=== PATIENT | male | born 1950 | race Caucasian/White ===

== ENCOUNTER 2016-09-18 12:15 | Day surgery (SDC) | payer MEDICAID, OTHER ==
[2016-09-18 12:56] VITALS: PULSE 68
--- NOTE | 2016-09-18 12:56 | PDGENHP ---
History & Physical Chief Complaint: screening History of Present Illness: 65 year old male presents for screening colonoscopy. Pertinent Past, Social, Family History: SoHx: + alc/cigs. PMHx: Bipolar. FaMHx : no CRC Relevant Physical Exam: HEENT: anicteric. CV: RRR +s1s2. Lungws: CTAB no w/r/ r. Abd: soft, nt, + bs. No guarding or rebound Cardiorespiratory Assessment: asa2
[2016-09-18] MEDS ORDERED: LR 1,000 ML IV ONE (12:57)
[2016-09-18] MEDS ORDERED: MIDAZOLAM 2 MG/2 ML VIAL IVP ONE (13:01)
--- NOTE | 2016-09-18 13:02 | PDANEPAE ---
ANE Past Medical History - Cardiovascular History Hx Hypertension: No Hx Arrhythmias: No Hx Chest Pain: No Hx Coronary Artery / Peripheral Vascular Disease: No Hx CHF / Valvular Disease: No Hx Palpitations: No - Pulmonary History Hx COPD: Yes Hx Asthma/Reactive Airway Disease: No Hx Recent Upper Respiratory Infection: Yes Hx Oxygen in Use at Home: Yes - Neurologic History Hx Cerebrovascular Accident: No Hx Seizures: No - Endocrine History Hx Diabetes: Yes - Renal History Hx Renal Disorders: No - Liver History Hx Hepatic Disorders: No - Neurological & Psychiatric Hx Hx Neurological and Psychiatric Disorders: Yes - Cancer History Hx Cancer: No - GI History Hx Gastrointestinal Disorders: No - Chronic Pain History Chronic Pain: No ANE Review of Systems - Exercise capacity METS (RN): 3 METS ANE Patient History - Allergies Allergies/Adverse Reactions: Penicillins Allergy (Unknown, Verified 11/08/11 12:48) - Home Medications Home Medications: Ambien 10 mg 11/01/13 [Last Taken 09/17/16] Colace 11/01/13 [Last Taken 09/17/16] Paxil 11/01/13 [Last Taken 09/17/16] Terazosin HCl 11/01/13 [Last Taken 09/17/16] Clozapine 09/15/16 [Last Taken 09/17/16] Flax Seed Oil 1,300 mg Softgel 09/15/16 [Last Taken 1 Week Ago] Garlic 09/15/16 [Last Taken 1 Week Ago] Incruse Ellipta 09/15/16 [Last Taken 09/17/16] Selenium 09/15/16 [Last Taken 09/17/16] - NPO status NPO Since - Liquids (Date): 09/17/16 NPO Since - Liquids (Time): 02:00 NPO Since - Solids (Date): 09/17/16 NPO Since - Solids (Time): 07:00 - Smoking Hx Smoking Status: Former smoker ANE Labs/Vital Signs - Vital Signs Blood Pressure: 113/64 Heart Rate: 68 Respiratory Rate: 20 O2 Sat (%): 91 Height: 167.64 cm ANE Physical Exam - Airway Mouth exam: normal dental/mouth exam - Pulmonary Pulmonary: no respiratory distress, expiratory wheeze - Cardiovascular Cardiovascular: regular rate and rhythym, no murmur, rub, or gallop - ASA Status ASA Status: III ANE Anesthesia Plan Anesthesia Plan: MAC
[2016-09-18] MEDS ORDERED: PROPOFOL 200 MG/20 ML VIAL ONE (13:06)
[2016-09-18] MEDS ORDERED: ONDANSETRON 4 MG/2 ML VIAL IVP PRN (13:12)
[2016-09-18] MEDS ORDERED: NALOXONE HCL 0.4 MG/ML INJ IVP PRN (13:12)
--- NOTE | 2016-09-18 13:36 | POSTOPPROG ---
Post Op Note Date of Operation: 09/18/16 Surgeon: Ghassan Berrios Pre-op Diagnosis: screening colonoscopy Post-op Diagnosis: screening colonoscopy Indication: screening Procedure: colonoscopy Findings: nl exam Inf/Abcess present in the surg proc area at time of surgery?: No
[2016-09-18] MEDS ORDERED: NS 500 ML IV SCH (13:45)
[2016-09-18 14:03] VITALS: BP 110/69; RESP 17
[2016-09-18 14:24] VITALS: TEMP 97.5; O2SAT 90
--- NOTE | 2016-09-18 16:00 | POSTANESTH ---
Post Anesthetic Evaluation Cardiovascular Status: Normal, Stable, Similar to Pre-Op Cond Respiratory Status: Normal, Stable, Similar to Pre-op Cond. Level of Consciousness/Mental Status: Can Participate in Eval, Mildly Sleepy, Arousable Pain Control: Adequate, Prn Tx Ordered Nausea/Vomiting Control: Adequate, Prn Tx Ordered Complications Possibly Related to Anesthesia: None Noted
--- NOTE | 2016-09-20 06:04 | GPN ---
[f rep st] PROCEDURE NOTE DATE OF PROCEDURE: 09/19/2016 PROCEDURE: Colonoscopy. INDICATION: The patient is a 65-year-old male, who presents for a screening colonoscopy. CONSENT: Risks, benefits, and alternatives of the procedure were discussed in great detail with the patient. Risk of infection, bleeding, perforation, sedation were discussed. All questions answere d and informed consent was obtained. MEDICATIONS: Propofol. Please see Anesthesiology records for details. ESTIMATED BLOOD LOSS: None. COLONOSCOPIC EVALUATION: A rectal exam was performed and no palpable mass was appreciated. The sco pe was introduced into the rectum and passed to the cecum, where the ileocecal valve and appendiceal orifice were visualized. The colonic mucosa was carefully examined on both insertion and withdrawa l of the scope. The quality of the prep was good. No polyps or masses were noted. In the sigmoid colon, a few small diverticula were noted. IMPRESSION: Sigmoid diverticulosis. RECOMMENDATIONS: 1. Repeat colonoscopy in 10 years. 2. Fiber supplementation. /[id number]/MODL
== END 2016-09-18 15:55 | disposition home or self-care (01) ==
LOC: FSGY 12:15 → EDBD 13:30 → FSGY 15:55
PROVIDERS: ATTEND Internal Medicine Gastroenterology
PROC: 0DJD8ZZ Inspection of Lower Intestinal Tract, Via Natural or Artificial Opening Endoscopic (ICD-10-PCS; principal; 2016-09-18 13:30)
DX: Z12.11 Encounter for screening for malignant neoplasm of colon (principal)
CPT/HCPCS: J2704